=== PATIENT | male | born 1950 | race Two or more races ===

== ENCOUNTER 2017-10-15 22:53 | Emergency (ER) | payer MEDICARE, OTHER ==
[~2017-10-15] VITALS: Ht 177.8 cm; Wt 95.3 kg
--- NOTE | 2017-10-15 23:00 | NUR ---
PT TO ER BED 14. BIBRA FROM STREET C/O GENERALIZED BODY PAIN X 2 HOURS. 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 VSS/RESP EVEN UNLABORED/NAD NOTED/SKIN WARM AND DRY/DENIES N-V-D/AFEBRILE/AOX4. AWAITING MD PATEL.
--- NOTE | 2017-10-15 23:10 | NUR ---
18G IV TO L AC X 1 ATTEMPT USING ASEPTIC TECH, BLOOD HANDED OVER TO THE LAB AT THE BEDSIDE. IV FLUSHES EASILY WITH NS, NO S/S INFILTRATION NOTED AT THIS TIME.
[2017-10-15 23:22] LABS: BASOPHILS % (AUTO) 0.3 % (0.0-2.0); EOSINOPHILS % (AUTO) 0.8 % (0.0-6.0); HEMATOCRIT 49 % (39-51); HEMOGLOBIN 16.4 g/dL (13.5-17.5); LYMPHOCYTES # (AUTO) 2.5 /CMM (0.8-4.8); LYMPHOCYTES % (AUTO) 21.8 % (20.0-44.0); MEAN CORPUSCULAR HGB CONC 34 g/dl (31.0-36.0); MEAN CORPUSCULAR VOLUME 84 fL (80-96); MONOCYTES # (AUTO) 0.7 /CMM (0.1-1.30); NEUTROPHILS % (AUTO) 71.1 % (43.0-81.0); PLATELET COUNT (AUTO) 223 /CMM (150-450); RDW COEFFICIENT OF VARIATION 13.2 (11.5-15.0); RED BLOOD CELL COUNT(AUTO) 5.84 MIL/uL (4.5-6.0); WHITE BLOOD COUNT (AUTO) 11.3 K/uL (4.3-11.0)
--- NOTE | 2017-10-15 23:27 | NUR ---
PT TO CT VIA STRETCHER, VSS.
[2017-10-15 23:38] LABS: CALCIUM, SERUM 9.6 mg/dL (8.5-10.1); CARBON DIOXIDE 29 mmol/L (21-32); CHLORIDE 102 mmol/L (98-107); CREATININE 1.2 mg/dL (0.6-1.3); GLUCOSE 286 mg/dL (74-106); POTASSIUM 3.8 mmol/L (3.5-5.1); SODIUM SERUM 139 mmol/L (136-145); UREA NITROGEN, BLOOD 18 mg/dL (7-18)
[2017-10-15 23:41] LABS: INR 0.96 (0.87-1.13)
[2017-10-15 23:43] LABS: ALANINE AMINOTRANSFERASE 18 U/L (12-78); ALBUMIN 3.7 g/dL (3.4-5.0); ALCOHOL, BLOOD < 3 mg/dL (0-0); ALKALINE PHOSPHATASE 147 U/L (46-116); ASPARTATE AMINOTRANSFERASE 11 U/L (15-37); BILIRUBIN,DIRECT 0.1 mg/dL (0.0-0.2); BILIRUBIN,TOTAL 0.6 mg/dL (0.2-1.0); SALICYLATE 3.4 mg/dL (2.8-20.0); TOTAL PROTEIN, SERUM 7.6 g/dL (6.4-8.2)
[2017-10-15 23:46] LABS: TROPONIN I < 0.017 ng/mL (0.00-0.056)
[2017-10-15 23:47] LABS: ACETAMINOPHEN 0 ug/ml (10-30)
--- NOTE | 2017-10-15 23:52 | NUR ---
BACK FROM CT.
--- NOTE | 2017-10-16 00:30 | NUR ---
MADE AWARE PT B/P 195/100. NEW ORDERS RECEIVED.
[2017-10-16] MEDS ORDERED: CLONIDINE HCL 0.1 MG TABLET ONE (00:42)
[2017-10-16] MEDS ORDERED: CLONIDINE HCL 0.1 MG TABLET PO ONE (01:00)
--- NOTE | 2017-10-16 01:38 | NUR ---
IV removed. Catheter intact and site benign. Pressure and 4x4 applied to site. No bleeding noted. Patient discharged to home in stable condition. Written and verbal after care instructions given. Patient verbalizes understanding of instruction. Patient is awake and alert to self, day, and place. Patient ambulatory with a steady gait.
[2017-10-16 01:40] VITALS: BP 146/87
== END 2017-10-16 01:41 | disposition home or self-care (01) ==
LOC: ER 22:55
DX: R53.1 Weakness (principal); E11.9 Type 2 diabetes mellitus without complications; I10 Essential (primary) hypertension; R40.4 Transient alteration of awareness; Z86.73 Personal history of transient ischemic attack (TIA), and cerebral infarction without residual deficits; Z88.0 Allergy status to penicillin; Z60.2 Problems related to living alone
CPT/HCPCS: 36415; 70450; 71045; 80048; 80076; 80329; 82962; 84484; 85025; 85730; 93005; 99285; A4606; G0480 ×2; Z7610